=== PATIENT | female | born 1985 | race Caucasian/White ===

== ENCOUNTER 2016-10-31 21:45 | Emergency (ER) | payer BC ==
[~2016-10-31 21:45] MED LIST: KLONO5 PO; LOESTRIN 21 PO
== END 2016-10-31 22:00 | disposition home or self-care (01) ==
LOC: ER 21:45
DX: M54.6 Pain in thoracic spine (principal); F41.9 Anxiety disorder, unspecified; Z88.8 Allergy status to other drugs, medicaments and biological substances; Z79.899 Other long term (current) drug therapy
CPT/HCPCS: 99283